=== PATIENT | female | born 1940 | race Caucasian/White ===

== ENCOUNTER 2018-05-18 14:20 | Observation (INO) | payer MEDICARE ==
[~2018-05-18] VITALS: Ht 157.5 cm; Wt 88.7 kg
[~2018-05-18 14:20] MED LIST: LIBRAX CAPSULE1 EACH PO; LOSARTAN POTAS100 MG PO; LOVASTATIN20 MG PO; METFORMIN HCL500 MG PO; METOPROLOL SUCC50 MG PO; PANTOPRAZOLE SO40 MG PO; VENLAFAXINE HCL75 M2 PO
--- OUTSIDE RECORDS SUMMARY | 2018-05-18 14:24 | XMS REPORT ---
Author [facility] Address Unknown Phone Unavailable Care Team Providers Care General Manager Name Role Phone Unavailable Unavailable Payers Payer Name Policy Type Policy Number Effective Date Expiration Date Problems This patient has no known problems. Allergies, Adverse Reactions, Alerts Allergy Name Allergy Type Status Severity Reaction(s) Onset Date Inactive Date Treating Clinician Comments penicillin G DA Active U 2018-01-26 00:00:00 Sulfa (Sulfonamide Antibiotics) DA Active SV 2015-12-28 00:00:00 codeine DA Active SV 2015-12-28 00:00:00 Medications This patient has no known medications.
[2018-05-18] MEDS: SODIUM CHLORIDE 0.9% 500ML 500 ML IV STA ×2 (15:18→16:41)
--- NOTE | 2018-05-18 15:18 | NUR ---
STATES NOT EATING OR DRINKING FOR 4 DAYS THAT SHE CANT SWALLOW. PT SHOWS AIRWAY PATENT.
--- NOTE | 2018-05-18 15:20 | NUR ---
PT NPO PER MD
--- NOTE | 2018-05-18 15:43 | NUR ---
ultrasound here for venous doppler.
--- NOTE | 2018-05-18 15:50 | NUR ---
creatin 2.0; md aware. pt +d-dimer.
[2018-05-18] MEDS ORDERED: ENOXAPARIN SODIUM INJ 100 MG/ML SYR SC STA (16:33)
[2018-05-18] MEDS: LACTATED RINGER'S 1,000 ML IV SCH ×2 (16:35→21:33)
[2018-05-18] MEDS ORDERED: HYDRALAZINE HCL 20 MG/ML VIAL IV PRN (16:45)
[2018-05-18] MEDS ORDERED: CLONIDINE HCL 0.2 MG TAB PO PRN (16:45)
[2018-05-18] MEDS ORDERED: DIPHENHYDRAMINE HCL INJ 50 MG/ML VIAL IV PRN (16:45)
[2018-05-18] MEDS ORDERED: ACETAMINOPHEN 325 MG TAB PO PRN (16:45)
[2018-05-18] MEDS ORDERED: ZOLPIDEM TARTRATE 5 MG TAB PO PRN (16:45)
[2018-05-18] MEDS ORDERED: ONDANSETRON HCL INJ 2MG/ML 2ML 2 MG/ML VIAL IV PRN (16:45)
--- NOTE | 2018-05-18 17:10 | NUR ---
called for ems for transport.
--- NOTE | 2018-05-18 17:11 | Diagnostic Imaging Report ---
EXAMINATION : Bilateral lower extremity venous Doppler exam. CLINICAL INDICATION: Swelling, shortness of breath COMPARISON: None DISCUSSION: Huffman scale, color Doppler and spectral waveform analysis of the right and left lower extremity deep venous system was performed. The right common femoral, superficial femoral and popliteal veins are compressible and demonstrate normal spontaneous phasic waveforms and normal response to augmentation. No filling defects are seen. The left common femoral, superficial femoral and popliteal veins are compressible and demonstrate normal spontaneous phasic waveforms and normal response to augmentation. No filling defects are seen. IMPRESSION: No deep venous thrombosis above the right and left calves. Signed by: Dr. Basilio Jaffe M.D. on 05/18/2018 5:08 PM
--- NOTE | 2018-05-18 17:59 | NUR ---
REPORT TO EMS
[2018-05-18 19:00] VITALS: BP 125/66
[2018-05-18 20:00] VITALS: BP 125/66
--- NOTE | 2018-05-18 20:09 | NUR ---
PATIENT IS OFF THE UNIT PER WHEEL CHAIR TO RADIOLOGY FOR VQ SCAN. CONDITION STABLE WITHOUT RESPIRATORY DISTRESS, O2@3L/NC.
--- NOTE | 2018-05-18 20:40 | NUR ---
PATIENT IS BACK ON THE UNIT FROM RADIOLOGY.
--- NOTE | 2018-05-18 20:48 | Diagnostic Imaging Report ---
EXAM: VENTILATION PERFUSION LUNG SCAN INDICATION: Shortness of breath. COMPARISON: None DISCUSSION: Xenon-133 gas 15 mCi was administered via inhalation. Dynamic images of the lungs in the posterior projection were obtained through single breath and washout phases. Distribution of tracer activity appears mildly irregular throughout the lungs. There is delayed washout but no evidence of air trapping. Perfusion images of the lungs in multiple projections were obtained following intravenous administration of 6 mCi of Tc-99m MAA. Distribution of tracer appears mildly irregular throughout the lungs.There are no segmental perfusion defects of any size. The contours of the lungs are well demarcated. The cardiac silhouette is unremarkable. IMPRESSION: Abnormal ventilation/perfusion lung scan 1. Scan findings represent a very low probability for acute pulmonary embolic disease based on the PIOPED II criteria. 2. Scan findings are compatible with diffuse parenchymal and/or obstructive lung disease. Signed by: Dr. Basilio Jaffe M.D. on 05/18/2018 8:45 PM
[2018-05-18] MEDS ORDERED: DICYCLOMINE HCL10 MG PO (21:47)
[2018-05-18] MEDS: METHYLPREDNISOLONE SOD SUCC 40 MG/ML VIAL 1ML IV SCH (22:19)
[2018-05-18] MEDS: AZITHROMYCIN 250MG/NS 100 ML 100 ML IV SCH (22:20)
[2018-05-18] MEDS: ALBUTEROL/IPRATROPIUM 3 ML NEB NEB PRN (23:12)
[2018-05-19] VITALS (8 sets, daily range): BP systolic 106–130; BP diastolic 53–82
--- NOTE | 2018-05-19 04:35 | NUR ---
PATIENT ASSISTED TO THE TOILET TO VOID, SHE'S NOW BACK IN BED WITHOUT DISTRESS. BED ALARM ON, CALL LIGHT WITHIN EASY REACH.
[2018-05-19 05:23] LABS: BASOPHILS # (AUTO) 0.1 (0.0-0.1); BASOPHILS % 0.5 % (0.0-1.0); EOSINOPHILS % 0.1 % (0.0-6.0); HEMATOCRIT 37.1 % (34.2-44.1); HEMOGLOBIN 12.1 g/dL (12.0-16.0); LYMPHOCYTES # (AUTO) 1.2 (1.0-3.2); LYMPHOCYTES % 10.6 % (18.0-39.1); MEAN CORPUSCULAR HEMOGLOBIN 28.7 pg (28-32); MEAN CORPUSCULAR HGB CONC 32.6 g/dL (31-35); MEAN CORPUSCULAR VOLUME 87.9 fL (81-99); MONOCYTES # (AUTO) 0.4 (0.2-0.8); MONOCYTES % 3.5 % (4.4-11.3); NEUTROPHILS # (AUTO) 9.6 (2.1-6.9); NEUTROPHILS % 84.2 % (38.7-80.0); PLATELET COUNT 205 x10e3/uL (140-360); RED BLOOD COUNT 4.22 x10e6/uL (3.6-5.1); RED CELL DISTRIBUTION WIDTH 13.4 % (11.7-14.4)
[2018-05-19 05:52] LABS: ANION GAP 16.7 mmol/L (8-16); CALCIUM 9.1 mg/dL (8.4-10.2); CREATININE, SERUM 1.55 mg/dL (0.57-1.11); POTASSIUM 4.7 mmol/L (3.5-5.1)
[2018-05-19] MEDS: METHYLPREDNISOLONE SOD SUCC 40 MG/ML VIAL 1ML IV SCH ×3 (06:00→22:01)
--- NOTE | 2018-05-19 08:52 | Diagnostic Imaging Report ---
EXAM: CT Chest WITHOUT contrast 05/19/2018 7:23 AM INDICATION: ^CHR LUNG DS? ^[id number] ^[id number] COMPARISON: VQ scan 05/18/2018 TECHNIQUE: Chest was scanned utilizing a multidetector helical scanner from the lung apex through the level of the adrenal glands without administration of IV contrast. Absence of intravenous contrast decreases sensitivity for detection of lymphadenopathy and vascular pathology. Coronal and sagittal reformations were obtained. Routine protocol was performed. IV CONTRAST: None COMPLICATIONS: None RADIATION DOSE: Total DLP: 519.8 mGy*cm Estimated effective dose: (DLP x 0.015 x size factor) mSv CTDIvol has been reviewed. It is below the limits set by the Radiation Protocol Committee (RPC). FINDINGS: LINES/ TUBES: None. LUNGS AND AIRWAYS: Moderate bilateral upper lobe predominant centrilobular and paraseptal emphysema. Mild subpleural reticulation of the lungs with associated septal thickening and mild bronchiectasis predominantly in the posterior lower lobes suggestive of mild pulmonary fibrosis. Airways are patent. Right upper lobe calcified granulomas. No suspicious nodules, masses, or consolidations. PLEURA: The pleural spaces are clear. HEART AND MEDIASTINUM: The thyroid gland is normal. Few noncalcified mediastinal lymph nodes measuring up to 1 cm. The heart is normal in size. There is no pericardial effusion. Diffuse coronary artery calcifications. The thoracic aorta is normal in caliber and associated with mildly scattered atherosclerotic calcifications. The main pulmonary artery is normal in size measuring 2.8 cm in diameter. UPPER ABDOMEN: Unremarkable. BONES: Mild multilevel degenerative changes of the thoracic spine. SOFT TISSUES: Unremarkable. 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 The fibrotic component may relate to possible UIP, recurrent aspiration, or drug induced interstitial lung disease. Normal size of the pulmonary arteries. Signed by: Dr. Sheryl Chicas M.D. on 05/19/2018 8:48 AM
[2018-05-19 09:32] LABS: CHOL/HDL RATIO 5.1 (3.0-3.6)
[2018-05-19] MEDS: LORATADINE 10 MG TAB PO SCH (09:51)
[2018-05-19] MEDS: SODIUM CHLORIDE 0.9% 1000ML 1,000 ML IV SCH (09:51)
[2018-05-19] MEDS: FAMOTIDINE 20 MG TAB PO SCH ×2 (09:51→16:48)
[2018-05-19] MEDS: PANTOPRAZOLE SOD 40 MG TABEC PO SCH ×2 (09:51→16:48)
[2018-05-19 09:52] LABS: THYROID STIMULATING HORMONE 0.493 uIU/mL (0.350-4.940)
[2018-05-19] MEDS: METOPROLOL SUCCINATE 50 MG TAB XL PO SCH (09:52)
[2018-05-19] MEDS: BENZONATATE 100 MG CAP PO SCH ×3 (09:52→22:01)
[2018-05-19] MEDS: ENOXAPARIN SOD INJ 40 MG/0.4 ML SYR SC SCH (16:48)
--- NOTE | 2018-05-19 20:24 | NUR ---
Patient is AxO x4. No pain or distress noted. Call light within reach. Received report from day shift nurse.
--- NOTE | 2018-05-19 20:58 | NUR ---
History and Physical 78yoF, PCP , developed cough and sob. Also with cough and rhinorrhea. PMH: FOrmer cigarette smoker quit 12yrs ago, HTN, HLD, GERD. PSHx: back Allergies; see emr FhSH; hx cigs quit 12hrs; no etoh/illicits Meds; see MAR ROS: n f/c/s//N/V/D/JAMISON/vision changes/skin rash V/S: rev'd PE: tired appearing anicteric ns1s2 cough with deep inspiration; reduced BS; Soft nt nd no leg edema; skin dry flat affect labs/meds revd A/P: 78yoF Acute bronchitis ALEKSEY Obesity BMI 35.8 Hyperglycemia HTN HLD CHr lung disease Former smoker Physical deconditioning PLAN: IV abx; antitussives; antihistamine; steroids hba1c/lipids scd;pepcid dispo: f/u labs; f/u CT and F/u Echo. Darian Anand MD, PhD.
[2018-05-19] MEDS: PRAVASTATIN 20 MG TAB PO SCH (22:01)
[2018-05-19] MEDS: MONTELUKAST SODIUM 10 MG TAB PO SCH (22:01)
[2018-05-19] MEDS: AZITHROMYCIN 250MG/NS 100 ML 100 ML IV SCH (22:06)
[2018-05-20] VITALS (8 sets, daily range): BP systolic 135–158; BP diastolic 62–83
[2018-05-20] MEDS: SODIUM CHLORIDE 0.9% 1000ML 1,000 ML IV SCH ×2 (04:39→23:30)
[2018-05-20] MEDS: METHYLPREDNISOLONE SOD SUCC 40 MG/ML VIAL 1ML IV SCH ×3 (05:41→21:12)
--- NOTE | 2018-05-20 06:51 | NUR ---
Discharge summary: A/P: 78yoF Acute bronchitis ALEKSEY Obesity BMI 35.8 Hyperglycemia HTN HLD CHr lung disease Former smoker Physical deconditioning PLAN: IV abx; antitussives; antihistamine; steroids hba1c/lipids scd;pepcid dispo: f/u labs; f/u CT and F/u Echo. 05/20 pulmonary fibrosis and emphysema on CT. hba1c/LDl 6.8/117- new DM. ADA diet check abs; Pt does have CKD3, as revealed on labs from 2016. d/c home Stable f/u pcp 1 week d/c >35mins Darian Anand MD, PhD.
--- NOTE | 2018-05-20 07:15 | NUR ---
REPORT WAS GIVEN TO NEXT NURSE. PATIENT ASLEEP IN BED, NO PAIN OR DISTRESS. CALL LIGHT WITHIN REACH. PATIENT WAS CONFUSED AT TIMES.
[2018-05-20] MEDS: FAMOTIDINE 20 MG TAB PO SCH ×2 (07:30→16:45)
--- NOTE | 2018-05-20 07:53 | NUR ---
Patient alert and responsive, O2Sats 92-93% RA and some desaturation with exertion, rounds by attending and notified, orders for home O2 eval
--- NOTE | 2018-05-20 08:10 | NUR ---
Made rounds with Dr. Anand to see pt. He is having an Home Oxygen eval. Pt can go today once this is set up. Rolling Walker given to pt as she does not have one. Will meet w/ her regarding her DME choice or home oxygen, and her home health choice.
[2018-05-20 08:17] LABS: BASOPHILS # (AUTO) 0.1 (0.0-0.1); BASOPHILS % 0.6 % (0.0-1.0); HEMATOCRIT 37.9 % (34.2-44.1); HEMOGLOBIN 12.6 g/dL (12.0-16.0); LYMPHOCYTES # (AUTO) 1.3 (1.0-3.2); LYMPHOCYTES % 10.4 % (18.0-39.1); MEAN CORPUSCULAR HEMOGLOBIN 28.7 pg (28-32); MEAN CORPUSCULAR HGB CONC 33.2 g/dL (31-35); MEAN CORPUSCULAR VOLUME 86.3 fL (81-99); MONOCYTES # (AUTO) 0.9 (0.2-0.8); NEUTROPHILS % 80.7 % (38.7-80.0); PLATELET COUNT 228 x10e3/uL (140-360); RED BLOOD COUNT 4.39 x10e6/uL (3.6-5.1); RED CELL DISTRIBUTION WIDTH 13.4 % (11.7-14.4)
[2018-05-20 08:45] LABS: ANION GAP 13.3 mmol/L (8-16); CALCIUM 9.1 mg/dL (8.4-10.2); CREATININE, SERUM 1.06 mg/dL (0.57-1.11); POTASSIUM 4.3 mmol/L (3.5-5.1)
[2018-05-20] MEDS: LORATADINE 10 MG TAB PO SCH (09:49)
[2018-05-20] MEDS: PANTOPRAZOLE SOD 40 MG TABEC PO SCH ×2 (09:49→16:45)
[2018-05-20] MEDS: BENZONATATE 100 MG CAP PO SCH ×3 (09:49→21:12)
--- NOTE | 2018-05-20 09:49 | NUR ---
CASE MANAGEMENT INITIAL ASSESSMENT Lead Refiner to bedside to discuss plan of care with patient/family. CM/SW role and care transitions discussed. Anticipated discharge plan discussed along with duration of care. CM/SW discussed patients right to make decisions in care. CM/SW work hours given. Patient lives: WITH HER Admit/Transfer: ED Hospital/ER visits since last admit: NONE POA/Emergency contact: ISAAC LAMAR [phone] Current/Previous Home Health: NEVER HAD ONE. WILL HAVE [facility] [phone], FAX [phone] PCP/Follow-up Care: DR. ROGER STALEY Current/Previous DME: NONE, WAS GIVEN ROLLING WALKER THIS VISIT Medications (referring to index hospitalization or the first time you were in the hospital) a. Were changes made in your medications when you were in the hospital on [date of index hospitalization]? Yes X No Not sure Explain: Note: If no or not sure, please skip to question d b. Did you understand the changes? Yes No Explain: c. Were you able to obtain your new medications right away? Yes No n/a SNF only Explain: d. Were you able to take your medications like the doctor wanted you to? X Yes No Explain: e. Did the hospital give you an accurate, easy to understand list of medications when you left? Yes No n/a SNF only Explain: HAS NOT BEEN TO HOSPITAL. Scale of 1-10 how comfortable does patient feel with disease management in outpatient settin Other Services: N/A Employment Status: RETIRED Areas of Concerns: LEARNING TO WALK WITH WALKER AND STOP FALLING Referral Needs: HOME HEALTH PHYSICAL THERAPY AND SN TO SEE HER Education Needs: HOME SAFETY, PT, HOME OXYGEN IF SHE MEETS CRITERIA TO RECEIVE IT. IMM/MACIEL given and signed (if applicable): IN ED Goal for discharge: TO RETURN HOME WITH HOME HEALTH TO FOLLOW CM/SW left business card at the bedside with contact information. Name and number was also written on the patients whiteboard. Patient verbalized understanding of discussion. CM will follow-up with ongoing discharge and transition of care needs.
[2018-05-20] MEDS: METOPROLOL SUCCINATE 50 MG TAB XL PO SCH (09:50)
--- NOTE | 2018-05-20 09:55 | NUR ---
Met with pt earlier to discuss home health. She has never had them. She agrees and signed choice letter. Stated she does not care which company as long as they are in network with her insurance. [facility] Ricks is in network and clinicals w/ order faxed. Confirmed pt demographics with pt. [phone] [facility] office; fax: [phone]
--- NOTE | 2018-05-20 10:59 | NUR ---
Pt meets criteria for home oxygen with O2 Sat 88% on RA at rest. [facility] has attempted to contact [facility] w/o sarah. [facility] is not in network with [employer], spoke with liaison Izabella. Faxing info to [facility] [phone] at this time. Spoke to Mohamud, occupational therapy asst rep @ [phone]. He will review to see if patient meets and then will let me know. Pt will need to place a credit card down until insurance can give auth. Awaiting Mohamud's reply
--- NOTE | 2018-05-20 12:04 | NUR ---
Received call from George with [facility]. They are in network with [employer] and can get the oxygen to the patient today. Patient will not require putting a credit card down. Faxed all clinical to [facility] and awaiting acceptance. [facility]: dony Vazquez cell [phone] fax: [phone]
--- NOTE | 2018-05-20 13:55 | NUR ---
Met with pt and her . Notified them of home health and oxygen. Notified oxygen will be delivered today so that she can dc home. Verbalized understanding.
--- NOTE | 2018-05-20 14:06 | NUR ---
Copy of letter given to patient and also placed in front of chart. Report given to her nurse Grisel PHILLIPS May 20, 2018 Ashlyn Mario [employer]: [facility] [employer] will call Monday, May 21, 2018 to set up time to come to assess. Their number is: [phone] [facility] [phone] will deliver your portable oxygen tank to you here at the hospital, and will take the concentrator to your home and explain how to use it. Thank you, Preeti Morrison RN/CM Case Management Dept
[2018-05-20] MEDS: ALBUTEROL/IPRATROPIUM 3 ML NEB NEB PRN ×2 (15:38→19:15)
[2018-05-20] MEDS: ENOXAPARIN SOD INJ 40 MG/0.4 ML SYR SC SCH (16:45)
--- NOTE | 2018-05-20 20:39 | NUR ---
Spoke with Dr. Anand that home oxygen has been delivered. patient is on azithromycin IV and no prescription is in the chart to discharge the patient tonight.
[2018-05-20] MEDS: AZITHROMYCIN 250MG/NS 100 ML 100 ML IV SCH (21:12)
[2018-05-20] MEDS: MONTELUKAST SODIUM 10 MG TAB PO SCH (21:12)
[2018-05-20] MEDS: PRAVASTATIN 20 MG TAB PO SCH (21:12)
[2018-05-21] VITALS: BP 117/59
[2018-05-21 00:37] VITALS: BP 117/59
[2018-05-21 04:00] VITALS: BP 146/72
[2018-05-21] MEDS: METHYLPREDNISOLONE SOD SUCC 40 MG/ML VIAL 1ML IV SCH (05:19)
[2018-05-21] MEDS ORDERED: SINGULAIR10 MG PO (06:12)
[2018-05-21] MEDS ORDERED: ZITHROMAX500 MG PO (06:12)
[2018-05-21] MEDS ORDERED: TESSALON PERLE100 MG PO (06:12)
[2018-05-21] MEDS ORDERED: PREDNISONE20 MG PO (06:12)
[2018-05-21] MEDS ORDERED: LORATADINE10 MG PO (06:12)
--- NOTE | 2018-05-21 06:14 | NUR ---
ADDENDUM Discharge summary: A/P: 78yoF Acute bronchitis ALEKSEY Obesity BMI 35.8 Hyperglycemia HTN HLD CHr lung disease Former smoker Physical deconditioning PLAN: IV abx; antitussives; antihistamine; steroids hba1c/lipids scd;pepcid dispo: f/u labs; f/u CT and F/u Echo. 05/20 pulmonary fibrosis and emphysema on CT. hba1c/LDl 6.8/117- new DM. ADA diet check abs; Pt does have CKD3, as revealed on labs from 2016. 05/21 remained in hospital for 1 day waiting for home O2. d/c home Stable f/u pcp 1 week d/c >35mins Darian Anand MD, PhD.
[2018-05-21 07:20] VITALS: BP 160/71
--- NOTE | 2018-05-21 07:21 | NUR ---
Report given to oncoming nurse. Patient asleep in bed. No pain or distress. Call light within reach.
[2018-05-21 07:40] VITALS: BP 160/71
[2018-05-21] MEDS: FAMOTIDINE 20 MG TAB PO SCH (09:00)
[2018-05-21] MEDS: METOPROLOL SUCCINATE 50 MG TAB XL PO SCH (09:00)
[2018-05-21] MEDS: LORATADINE 10 MG TAB PO SCH (09:00)
[2018-05-21] MEDS: PANTOPRAZOLE SOD 40 MG TABEC PO SCH (09:00)
[2018-05-21] MEDS: BENZONATATE 100 MG CAP PO SCH (09:00)
[2018-05-21] MEDS: SODIUM CHLORIDE 0.9% 1000ML 1,000 ML IV SCH (09:27)
[2018-05-21 11:00] VITALS: BP 138/64
--- NOTE | 2018-05-21 11:55 | NUR ---
discharge instructions given to patient and at this time, both verbalized understanding. IV discontinued at this time, catheter in tact and small bandage applied. Patient to be escorted from floor via wheelchair to personal auto for to drive home. Patient alert and oriented and in stable condition.
--- NOTE | 2018-05-21 12:15 | NUR ---
Called and spoke to Elena at [facility]. Informed her that pt has discharged. She will put pt down to be seen tomorrow.
== END 2018-05-21 12:00 | disposition home or self-care (01) ==
LOC: FSED 14:20 → ERHOLD 16:33 → IMCU 18:57
PROVIDERS: ADMIT Internal Medicine; ATTEND Internal Medicine
DX: J20.9 Acute bronchitis, unspecified (principal); Z87.891 Personal history of nicotine dependence; Z88.5 Allergy status to narcotic agent; Z88.2 Allergy status to sulfonamides; J44.0 Chronic obstructive pulmonary disease with (acute) lower respiratory infection; E66.9 Obesity, unspecified; Z68.35 Body mass index [BMI] 35.0-35.9, adult; N17.9 Acute kidney failure, unspecified; R73.9 Hyperglycemia, unspecified; E78.5 Hyperlipidemia, unspecified; R53.81 Other malaise; N18.3 Chronic kidney disease, stage 3 (moderate); I12.9 Hypertensive chronic kidney disease with stage 1 through stage 4 chronic kidney disease, or unspecified chronic kidney disease
CPT/HCPCS: 36415 ×2; 71250; 78582; 80048 ×2; 80053; 80061; 81003; 82553; 83036; 84443; 84484; 85025 ×3; 85379; 93005; 93306; 93970; 94640 ×4; 96367; 96374; 96376; 97110; 97116; 97162; 97530; 99284; A9540; A9558; G0378 ×4; J0360; J1200; J1650 ×3; J2405; J2920 ×4; J7030 ×3; J7040; J7121; S0164 ×3

== ENCOUNTER 2019-07-30 10:45 | Emergency (ER) | payer MEDICARE ==
[~2019-07-30] VITALS: Ht 157.5 cm; Wt 88.5 kg
[~2019-07-30 10:45] MED LIST changes: +DICYCLOMINE HCL10 MG PO; +LORATADINE10 MG PO; +PREDNISONE20 MG PO; +SINGULAIR10 MG PO; +TESSALON PERLE100 MG PO; +ZITHROMAX500 MG PO
[2019-07-30] MEDS ORDERED: SODIUM CHLORIDE 0.9% 50ML 50 ML ONE (11:33)
[2019-07-30] MEDS ORDERED: IOPAMIDOL 370 MG/ML 200 ML INFUS..BTL INJ ONE (11:33)
[2019-07-30] MEDS ORDERED: SODIUM CHLORIDE 0.9% 1000ML 1,000 ML IV SCH (12:15)
--- NOTE | 2019-07-30 13:19 | Diagnostic Imaging Report ---
CT of the abdomen and pelvis, with contrast. History: Rectal bleeding. Comparison: None available. Technique: Multidetector CT scanning of the abdomen and pelvis was performed from the level of the lung bases to the inferior pubic rami after intravenous administration of contrast. Coronal and sagittal multiplanar reformations were obtained. RADIATION DOSE: Total DLP: 767.48 mGy*cm Dose modulation, iterative reconstruction, and/or weight based adjustment of the mA/kV was utilized to reduce the radiation dose to as low as reasonably achievable. FINDINGS: The lung bases demonstrate mild dependent atelectasis/scarring and suspected fibrotic changes, better evaluated on prior CT chest examinations. Scattered small cysts are noted within the visualized lungs, measuring up to 1.3 cm within the right lower lung zone. The imaged portion of the heart demonstrates no significant abnormalities. The liver is normal in size and attenuation. There is a patchy area increased enhancement identified within the inferior right hepatic lobe which is not definitively characterized on this single phase examination and may represent vascular shunting. No other focal hepatic abnormality is identified. There is a punctate calcified stone versus focal wall calcification identified within the gallbladder. There is no evidence for gallbladder wall thickening or pericholecystic fluid. There is no intrahepatic biliary ductal dilatation. There is mild prominence of the common bile duct measuring up to 7 mm. The stomach, spleen, pancreas, and bilateral adrenal glands are unremarkable. The kidneys are normal in size and location and enhance symmetrically. There is no evidence for hydronephrosis. No ureteral dilatation or stone is appreciated. The partially distended urinary bladder demonstrates no significant abnormalities. The uterus and adnexa are grossly unremarkable. The abdominal aorta is normal in caliber with atherosclerotic calcifications within course and branch vessels. The IVC is unremarkable. Please note evaluation of the bowel is limited without the use of enteric contrast material. There is mild wall thickening of the rectum without significant adjacent inflammatory change. The remaining visualized loops of small and large bowel demonstrate no evidence of obstruction or inflammation. Diverticula are noted within the sigmoid and descending colon without evidence for acute diverticulitis. There is no ascites or intraperitoneal free air. No abnormally enlarged lymph nodes are identified within the abdomen or pelvis. Multilevel degenerative changes of the thoracolumbar spine. The osseous structures to the straight no evidence for acute fracture or destructive process. The extraperitoneal soft tissues are unremarkable. IMPRESSION: 1. Mild wall thickening noted of the rectum which is nonspecific but can be seen in the setting of proctitis. No evidence of bowel obstruction. 2. Diverticulosis coli without evidence for acute diverticulitis. 3. Punctate stone versus focal wall calcification noted within the gallbladder. No CT evidence for acute cholecystitis. Signed by: Dr. Nathan Armenta MD on 07/30/2019 1:16 PM
[2019-07-30] MEDS ORDERED: METRONIDAZOLE 500MG/NS 100ML 100 ML IV ONE (13:54)
[2019-07-30] MEDS ORDERED: METHYLPREDNISOLONE SOD SUCC 125 MG/2ML VIAL ONE (13:54)
[2019-07-30] MEDS ORDERED: LEVOFLOXACIN 500 MG TAB ONE (13:54)
[2019-07-30] MEDS ORDERED: METHYLPREDNISOLONE SOD SUCC 125 MG/2ML VIAL IV STA (14:13)
[2019-07-30] MEDS ORDERED: METRONIDAZOLE 500MG/NS 100ML 100 ML IV STA (14:13)
[2019-07-30] MEDS ORDERED: LEVOFLOXACIN 500 MG TAB PO STA (14:13)
[2019-07-30] MEDS ORDERED: LEVAQUIN500 MG PO (14:47)
[2019-07-30] MEDS ORDERED: METRONIDAZOLE500 MG PO (14:48)
[2019-07-30] MEDS ORDERED: ONDANSETRON ODT8 MG PO (14:50)
[2019-07-30] MEDS ORDERED: PREDNISONE20 MG PO (14:52)
== END 2019-07-30 15:15 | disposition home or self-care (01) ==
LOC: FSED 10:45
DX: K51.811 Other ulcerative colitis with rectal bleeding (principal); K92.1 Melena; I10 Essential (primary) hypertension; J44.9 Chronic obstructive pulmonary disease, unspecified
CPT/HCPCS: 74177; 80048; 80076; 81003; 85025; 96374; 99284; J2930; J7030; Q9967

== ENCOUNTER → 2020-07-27 | Outpatient (CLI) | payer MEDICARE ==
[~2020-07-27] MED LIST changes: +FENTANYL CITRATE/PF 100MCG/2 ML INJ ONE; +LEVAQUIN500 MG PO; +METRONIDAZOLE500 MG PO; +MIDAZOLAM HCL 2 MG/2 ML VIAL ONE; +ONDANSETRON ODT8 MG PO
[2020-07-27 08:11] LABS: HEMOGLOBIN 16.6 g/dL (12.0-16.0)
[2020-07-27 08:43] LABS: INR 0.92
[2020-07-27 08:44] LABS: PARTIAL THROMBOPLASTIN TIME 37.8 seconds (23.8-35.5)
== END ==
LOC: CT 07:42
PROVIDERS: ATTEND Internal Medicine
DX: J90 Pleural effusion, not elsewhere classified (principal); J92.9 Pleural plaque without asbestos
CPT/HCPCS: 32408; 36415; 71045; 77012; 85014; 85049; 85610; 85730; 88112; 88172; 88173; 88305; 88342; J2250; J3010; U0002; 99152; 99153